=== PATIENT | female | born 1940 | race Caucasian/White ===

== ENCOUNTER 2016-08-05 07:34 | Day surgery (SDC) | payer MEDICARE, OTHER ==
--- NOTE | ~2016-08-05 | EGD ---
EGD REPORT [facility] [place] [address] [address] NAME: NOEMÍ THAYER : [birth year] STATUS : REG [facility]#: [id number] AGE: 76 ADM/REG DATE : 08/05/16 MR#: [id number] REPORT SERV DATE: 08/05/16 DICTATED BY: PA PARRY DATE: 08/05/16 REPORT STATUS : Draft [facility]: [facility] DATE: 08/05/16 Endoscopy Center Patient Name: Noemí Thayer Date of : 1940 Attending MD: PA PARRY, Procedure Date No Time: 08/05/2016 Procedure: Upper GI endoscopy Indications: Iron deficiency anemia Referring MD: TALYA ROBINS MD Medicines: Monitored Anesthesia Care Complications: No immediate complications. Estimated blood loss: None. Procedure: Pre-Anesthesia Assessment: - ASA Grade Assessment: III - A patient with severe systemic disease. After obtaining informed consent, the endoscope was passed under direct vision. Throughout the procedure, the patient's blood pressure, pulse, and oxygen saturations were monitored continuously. The GIF [id number] was introduced through the mouth, and advanced to the second part of duodenum. The upper GI endoscopy was accomplished without difficulty. The patient tolerated the procedure well. Findings: The esophagus was normal. 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 With the endoscope in place, the position and extent of the abnormal mucosa and appropriate anatomic landmarks were noted. The endoscope was then removed from the patient. The Halo radiofrequency ablation catheter was attached to the tip of the endoscope. The endoscope with the attached radiofrequency ablation catheter was then passed under direct vision and advanced to the areas of abnormal mucosa. The radiofrequency ablation catheter was placed in contact with the surface of the abnormal mucosa under direct visualization and energy was applied twice at 12 J/cm2. The areas where abnormal mucosa had been ablated were carefully examined. Areas of abnormal mucosa appeared completely treated. The exam of the stomach was otherwise normal. The cardia and gastric fundus were normal on retroflexion. The examined duodenum was normal. Impression: - Normal esophagus. 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 Treated with radiofrequency ablation. EGD REPORT [place] [id number] [place]. [address] NAME: NOEMÍ THAYER : [birth year] STATUS : REG [facility]#: [id number] AGE: 76 ADM/REG DATE : 08/05/16 MR#: [id number] REPORT SERV DATE: 08/05/16 DICTATED BY: PA PARRY DATE: 08/05/16 REPORT STATUS : Draft TRANSCRIBED BY: [facility] DATE: 08/05/16 - Normal examined duodenum. Recommendation: - Patient has a contact number available for emergencies. The signs and symptoms of potential delayed complications were discussed with the patient. Return to normal activities tomorrow. Written discharge instructions were provided to the patient. - Return to previous diet. - Continue present medications. - Repeat the upper endoscopy PRN for retreatment. Procedure Code(s): --- Professional --- 42958, Esophagogastroduodenoscopy, flexible, transoral; with control of bleeding, any method Diagnosis Code(s): --- Professional --- K31.819, Angiodysplasia of stomach and duodenum without bleeding D50.9, Iron deficiency anemia, unspecified CPT copyright 2013 [employer]. All rights reserved. The codes documented in this report are preliminary and upon counter clerk farm equipment parts review may be revised to meet current compliance requirements. PA PARRY, 08/05/2016 9:55 AM Number of Addenda: 0 Note Initiated On: 08/05/2016 9:17 AM Scope Withdrawal Time 0 hours 0 minutes 0 seconds [address] [place] [address]
--- NOTE | ~2016-08-05 | EGD ---
EGD REPORT [facility] [address] [address] NAME: NOEMÍ THAYER : [birth year] STATUS : REG [facility]#: [id number] AGE: 76 ADM/REG DATE : 08/05/16 MR#: [id number] REPORT SERV DATE: 08/05/16 DICTATED BY: PA PARRY DATE: 08/05/16 REPORT STATUS : Draft TRANSCRIBED BY: [facility] DATE: 08/05/16 Endoscopy Center Patient Name: Noemí Thayer Date of : 1940 Attending MD: PA PARRY, Procedure Date No Time: 08/05/2016 Procedure: Colonoscopy Indications: High risk colon cancer surveillance: Personal history of colonic polyps Referring MD: TALYA ROBINS MD Medicines: Monitored Anesthesia Care Complications: No immediate complications. Estimated blood loss: None. Procedure: Pre-Anesthesia Assessment: - ASA Grade Assessment: III - A patient with severe systemic disease. After I obtained informed consent, the scope was passed under direct vision. Throughout the procedure, the patient's blood pressure, pulse, and oxygen saturations were monitored continuously. The [facility] [id number] was introduced through the anus and advanced to the cecum, identified by appendiceal orifice and ileocecal valve. The colonoscopy was performed without difficulty. The patient tolerated the procedure well. The quality of the bowel preparation was good. Findings: The perianal and digital rectal examinations were normal. A sessile polyp was found in the transverse colon. The polyp was 15 mm in size. The polyp was removed with a hot snare. Resection and retrieval were complete. Verification of patient identification for the specimen was done. Estimated blood loss was minimal. Multiple small-mouthed diverticula were found in the sigmoid colon. The exam was otherwise without abnormality on direct and retroflexion views. Impression: - One 15 mm polyp in the transverse colon. Resected and retrieved. - Diverticulosis in the sigmoid colon. - The examination was otherwise normal on direct and retroflexion views. Recommendation: - Patient has a contact number available for emergencies. The signs and symptoms of potential delayed complications were discussed with the patient. Return to normal activities tomorrow. Written discharge EGD REPORT [address] [address] NAME: NOEMÍ THAYER : [birth year] STATUS : [place] [facility] [place]#: [id number] AGE: 76 ADM/REG DATE : 08/05/16 MR#: [id number] REPORT SERV DATE: 08/05/16 DICTATED BY: PA PARRY DATE: 08/05/16 REPORT STATUS : Draft TRANSCRIBED BY: [employer] DATE: 08/05/16 instructions were provided to the patient. - Return to previous diet. - Continue present medications. - Await pathology results. - Repeat colonoscopy for surveillance based on pathology results. Procedure Code(s): --- Professional --- 84621, Colonoscopy, flexible, proximal to splenic flexure; with removal of tumor(s), polyp(s), or other lesion(s) by snare technique Diagnosis Code(s): --- Professional --- D12.3, Benign neoplasm of transverse colon K57.30, Diverticulosis of large intestine without perforation or abscess without bleeding Z86.010, Personal history of colonic polyps CPT copyright 2013 [employer]. All rights reserved. The codes documented in this report are preliminary and upon medical billing coder review may be revised to meet current compliance requirements. PA PARRY, 08/05/2016 9:56 AM Number of Addenda: 0 Note Initiated On: 08/05/2016 9:05 AM Scope Withdrawal Time 0 hours 10 minutes 48 seconds [id number] [address]
[~2016-08-05 07:34] MED LIST: ACET500CAP PO; ALA-CORT1 % TOP; AMB5 PO; ASAB PO; BION TEARS OPH; CELEXA10 PO; COZAAR100 MG PO; DIABETA5 PO; ELIQUIS 5 MG TAB5 MG PO; GLUCOPHAGE1000 MG PO; GLUCOTROL5 PO; GLUCPH PO; HYT2 PO; JANUVIA100 MG PO; L20 PO; L40 PO; LANTUS SC; LEVOTHYROXIN50 MCG PO; LOM PO; LOP100 PO; MULTIVIT/MIN PO; NORV5 PO; PCET PO; PEPTO BISMOL LIQ1 ML PO; PLAVIX PO; PRILO PO; RESTASIS OPH; TEARS NATURA OPH; TRESIBA FL100 UNIT/1 SC; VITAMIN D1000 UNI1 PO; VITAMIN D31000 UNIT PO; ZOCOR10 PO
== END 2016-08-05 23:59 | disposition home or self-care (01) ==
LOC: DMU 07:34
PROVIDERS: Internal Medicine Gastroenterology
PROC: 0DBL8ZZ Excision of Transverse Colon, Via Natural or Artificial Opening Endoscopic (ICD-10-PCS; principal; 2016-08-05 09:30)
PROC: 0D568ZZ Destruction of Stomach, Via Natural or Artificial Opening Endoscopic (ICD-10-PCS; 2016-08-05 09:30)
DX: Z12.11 Encounter for screening for malignant neoplasm of colon (principal); D12.3 Benign neoplasm of transverse colon; K57.30 Diverticulosis of large intestine without perforation or abscess without bleeding; K31.819 Angiodysplasia of stomach and duodenum without bleeding; D50.9 Iron deficiency anemia, unspecified; M34.1 CR(E)ST syndrome; K22.70 Barrett's esophagus without dysplasia; I10 Essential (primary) hypertension; E11.9 Type 2 diabetes mellitus without complications; D64.9 Anemia, unspecified; Z79.899 Other long term (current) drug therapy; Z86.010 Personal history of colon polyps; Z79.891 Long term (current) use of opiate analgesic; Z79.4 Long term (current) use of insulin; Z88.1 Allergy status to other antibiotic agents
CPT/HCPCS: 82962; 88305